=== PATIENT | female | born 1990 | race Caucasian/White ===

== ENCOUNTER 2020-11-20 14:08 | Emergency (ER) | payer MEDICAID ==
[~2020-11-20] VITALS: Ht 162.6 cm; Wt 61.2 kg
[2020-11-20 14:22] VITALS: BP 121/76
--- NOTE | 2020-11-20 14:28 | NUR ---
PT SENT TO ER LOBBY TO WAIT FOR AVAILABLE BED.
--- NOTE | 2020-11-20 16:14 | NUR ---
PT AMBULATED TO CHAIR A. BECCA SARGENT EVALUATING PT
[2020-11-20] MEDS ORDERED: PROM118S5 PO (16:21)
[2020-11-20] MEDS ORDERED: IBUP-2213 PO (16:21)
--- NOTE | 2020-11-20 16:27 | NUR ---
NO NURSING INTERVENTIONS PROVIDED. PT SEEN AND D/C BY BECCA SARGENT
--- NOTE | 2020-11-20 16:28 | NUR ---
Patient discharged with v/s stable. Written and verbal after care instructions ABOUT UPPER RESPIRATORY INFECTION AND LYMPHADENOPATHY given and explained. Patient alert, oriented and verbalized understanding of instructions. Ambulatory with steady gait. All questions addressed prior to discharge. ID band removed. Patient advised to follow up with PMD. Rx of IBUPROFEN AND PROMETHAZINE DM SYRUP given. Patient educated on indication of medication including possible reaction and side effects. Opportunity to ask questions provided and answered.
== END 2020-11-20 16:28 | disposition home or self-care (01) ==
LOC: MED 14:08
DX: J06.9 Acute upper respiratory infection, unspecified (principal); R59.1 Generalized enlarged lymph nodes; Z79.899 Other long term (current) drug therapy
CPT/HCPCS: 99283

== ENCOUNTER 2021-07-18 07:25 | Emergency (ER) | payer MEDICAID ==
[~2021-07-18] VITALS: Ht 162.6 cm; Wt 62.6 kg
[~2021-07-18 07:25] MED LIST: IBUP-2213 PO; PROM118S5 PO
[2021-07-18 07:37] VITALS: BP 137/83
--- NOTE | 2021-07-18 08:13 | NUR ---
Pelvic exam performed at bedside . Assisted Dr. Jimenez, specimens collected . Walked to and handed to Daron
[2021-07-18] MEDS ORDERED: FLUC150T PO (08:48)
--- NOTE | 2021-07-18 08:57 | NUR ---
Patient discharged with v/s stable. Written and verbal after care instructions given and explained. Patient alert, oriented and verbalized understanding of instructions. Ambulatory with steady gait. All questions addressed prior to discharge. ID band removed. Patient advised to follow up with PMD. Rx of diflucan given. Patient educated on indication of medication including possible reaction and side effects. Opportunity to ask questions provided and answered.
--- NOTE | 2021-07-18 08:57 | NUR ---
The patient's care was reviewed and supervised by [facility], RN.
[2021-07-18 08:58] VITALS: BP 137/83
== END 2021-07-18 08:57 | disposition home or self-care (01) ==
LOC: MED 07:25
DX: B37.9 Candidiasis, unspecified (principal); F12.90 Cannabis use, unspecified, uncomplicated; Z79.899 Other long term (current) drug therapy
CPT/HCPCS: 81002; 81025; 87210; 99283; 99284